=== PATIENT | female | born 1990 | race Two or more races ===

== ENCOUNTER 2021-12-31 13:53 | Emergency (ER) | payer OTHER ==
[~2021-12-31] VITALS: Ht 165.1 cm; Wt 59.0 kg
== END 2021-12-31 20:53 | disposition home or self-care (01) ==
LOC: ER 13:53
DX: O26.899 Other specified pregnancy related conditions, unspecified trimester (principal); R10.2 Pelvic and perineal pain; Z3A.20 20 weeks gestation of pregnancy

== ENCOUNTER 2022-01-14 14:27 | Outpatient (CLI) | payer OTHER | END 2022-01-14 15:10 | disposition home or self-care (01) | LOC: PRENATAL 14:27 | PROVIDERS: ATTEND Obstetrics & Gynecology Maternal & Fetal Medicine | DX: O26.849 Uterine size-date discrepancy, unspecified trimester (principal); O35.0XX0 Maternal care for (suspected) central nervous system malformation in fetus, not applicable or unspecified; O36.8199 Decreased fetal movements, unspecified trimester, other fetus; Z3A.36 36 weeks gestation of pregnancy ==

== ENCOUNTER 2022-01-28 23:50 | Inpatient (IN) | payer OTHER ==
[~2022-01-28] VITALS: Ht 165.1 cm; Wt 61.2 kg
[2022-01-29] MEDS ORDERED: PRENATAL TABLE1 EAC1 PO (00:40)
== END 2022-01-30 11:49 | disposition home or self-care (01) | DRG 833 ==
LOC: OBS/DEL 23:50 → LDR 01-29 11:54
PROVIDERS: ADMIT Obstetrics & Gynecology; ATTEND Obstetrics & Gynecology
PROC: BU4CZZZ Ultrasonography of Uterus and Ovaries (ICD-10-PCS; principal; 2022-01-29)
PROC: BY4CZZZ Ultrasonography of Second Trimester, Single Fetus (ICD-10-PCS; 2022-01-29)
PROC: 4A1HXCZ Monitoring of Products of Conception, Cardiac Rate, External Approach (ICD-10-PCS; 2022-01-29)
DX: O46.8X2 Other antepartum hemorrhage, second trimester (principal); O26.842 Uterine size-date discrepancy, second trimester; O26.852 Spotting complicating pregnancy, second trimester; Z3A.22 22 weeks gestation of pregnancy; Z20.822 Contact with and (suspected) exposure to COVID-19

== ENCOUNTER → 2022-01-28 | Emergency (ER) | payer OTHER ==
[~2022-01-28] MED LIST: INTEGRA PLUS C1 EACH PO; PRENATAL TABLE1 EAC1 PO
== END | disposition left against medical advice (07) ==
LOC: ER 22:18
DX: Z53.21 Procedure and treatment not carried out due to patient leaving prior to being seen by health care provider (principal)

== ENCOUNTER 2022-03-03 20:54 | Inpatient (IN) | payer OTHER ==
[~2022-03-03] VITALS: Ht 165.1 cm; Wt 63.5 kg
[~2022-03-03 20:54] MED LIST changes: -INTEGRA PLUS C1 EACH PO
[2022-03-10] MEDS ORDERED: INTEGRA PLUS C1 EACH PO ×2 (11:58)
== END 2022-03-10 14:22 | disposition home or self-care (01) | DRG 831 ==
LOC: OBS/DEL 20:54 → LDR 03-04 12:17 → OB/GYN 03-08 10:58
PROVIDERS: ADMIT Obstetrics & Gynecology; ATTEND Obstetrics & Gynecology
PROC: BY4CZZZ Ultrasonography of Second Trimester, Single Fetus (ICD-10-PCS; 2022-03-03)
PROC: 4A1HXCZ Monitoring of Products of Conception, Cardiac Rate, External Approach (ICD-10-PCS; principal; 2022-03-04)
PROC: BU4CZZZ Ultrasonography of Uterus and Ovaries (ICD-10-PCS; 2022-03-05)
PROC: BY4CZZZ Ultrasonography of Second Trimester, Single Fetus (ICD-10-PCS; 2022-03-05)
DX: O60.02 Preterm labor without delivery, second trimester (principal); O45.92 Premature separation of placenta, unspecified, second trimester; O26.872 Cervical shortening, second trimester; O99.012 Anemia complicating pregnancy, second trimester; Z3A.27 27 weeks gestation of pregnancy; Z20.822 Contact with and (suspected) exposure to COVID-19; O26.852 Spotting complicating pregnancy, second trimester; D64.89 Other specified anemias

== ENCOUNTER 2022-04-08 16:27 | Outpatient (CLI) | payer OTHER ==
[~2022-04-08 16:27] MED LIST changes: +INTEGRA PLUS C1 EACH PO
== END 2022-04-09 13:12 | disposition home or self-care (01) ==
LOC: OBS/DEL 16:27
PROVIDERS: ATTEND Obstetrics & Gynecology
DX: O46.93 Antepartum hemorrhage, unspecified, third trimester (principal); Z3A.33 33 weeks gestation of pregnancy; Z91.013 Allergy to seafood

== ENCOUNTER 2022-04-10 08:47 | Outpatient (CLI) | payer OTHER | END 2022-04-10 09:31 | disposition home or self-care (01) | LOC: PRENATAL 08:47 | PROVIDERS: ATTEND Obstetrics & Gynecology Maternal & Fetal Medicine | DX: O26.849 Uterine size-date discrepancy, unspecified trimester (principal); O35.0XX0 Maternal care for (suspected) central nervous system malformation in fetus, not applicable or unspecified; Z3A.32 32 weeks gestation of pregnancy ==

== ENCOUNTER 2022-05-16 04:27 | Inpatient (IN) | payer OTHER ==
[~2022-05-16] VITALS: Ht 165.1 cm; Wt 75.3 kg
== END 2022-05-18 15:08 | disposition home or self-care (01) | DRG 807 ==
LOC: LDR 04:27 → OB/GYN 15:33
PROVIDERS: ADMIT Obstetrics & Gynecology; ATTEND Obstetrics & Gynecology
PROC: 10E0XZZ Delivery of Products of Conception, External Approach (ICD-10-PCS; principal; 2022-05-16)
PROC: 0HQ9XZZ Repair Perineum Skin, External Approach (ICD-10-PCS; 2022-05-16)
PROC: 4A1HXCZ Monitoring of Products of Conception, Cardiac Rate, External Approach (ICD-10-PCS; 2022-05-16)
DX: O70.0 First degree perineal laceration during delivery (principal); Z37.0 Single live birth; Z3A.37 37 weeks gestation of pregnancy; Z20.822 Contact with and (suspected) exposure to COVID-19

== ENCOUNTER 2023-01-06 07:23 | Day surgery (SDC) | payer OTHER | END 2023-01-06 14:30 | disposition home or self-care (01) | LOC: CIR.AMB 07:23 | PROVIDERS: ATTEND Student in an Organized Health Care Education/Training Program | DX: D06.9 Carcinoma in situ of cervix, unspecified (principal); Z20.822 Contact with and (suspected) exposure to COVID-19; Z91.013 Allergy to seafood ==